=== PATIENT | female | born 1960 | race American Indian/Alaskan Native ===

== ENCOUNTER 2016-10-21 09:10 | Day surgery (SDC) | payer OTHER ==
[2016-10-19 09:29] VITALS: BMI 34.1
[~2016-10-21 09:10] MED LIST: LACTATED RINGERS 1,000 ML IV SCH
[2016-10-21 10:57] VITALS: TEMP 98.1
[2016-10-21] MEDS ORDERED: LIDOCAINE 1% 20 ML VIAL (10MG/ML) FOR IV START INTRADERMA ONE (11:04)
[2016-10-21 11:05] LABS: Glucose,Whole Blood 94 mg/dL (75-99)
[2016-10-21] MEDS ORDERED: PROPOFOL 10 MG/ML 20 ML VIAL IV ONE (11:06)
--- NOTE | 2016-10-21 11:21 | P.PCN ---
Date of Procedure: 10/21/16 Procedure(s) Performed: BRIEF HISTORY: Patient is a 56-year-old pleasant white female scheduled for an elective colonoscopy as a part of evaluation of chronic diarrhea for the last several years duration. She usually has myeloma centimeters from 5-6 a day, loose to watery in consistency but no blood or mucus in the stool. She also has prior history of colon polyps and last colonoscopy was 3 years ago. PROCEDURE PERFORMED: Colonoscopy with biopsy. PREOPERATIVE DIAGNOSIS: Chronic diarrhea and prior history of colon polyps. IV sedation per Anesthesia. PROCEDURE: After informed consent was obtained, the patient, was brought into the endoscopy unit. IV conscious sedation was administered by Anesthesia under continuous monitoring. Digital rectal examination was normal. Initially the Olympus CF-160 flexible video colonoscope was then inserted in the rectum, gradually advanced into the cecum without any difficulty. Careful examination was performed as the scope was gradually being withdrawn. Ileocecal valve and the appendiceal orifice were visualized and appeared normal. Prep was excellent. Mucosa of the cecum, ascending colon, transverse colon, descending colon, sigmoid colon, and rectum appeared normal. Random biopsies were done from the ascending and descending colon to rule out microscopic/collagenous colitis Retroflexion was performed in the rectum and no lesions were seen. The patient tolerated the procedure well. IMPRESSION: Normal-appearing colon from rectum to cecum with no evidence of colitis or colorectal neoplasia. RECOMMENDATIONS: Findings of this examination were discussed with the patient as well as a family. She was advised to follow with the biopsy results. She will continue with her current medications and she'll be seen in the office in 3 -4 weeks.
[2016-10-21 11:59] VITALS: BP 106/68; PULSE 78; RESP 16
== END 2016-10-21 12:19 | disposition home or self-care (01) ==
LOC: ORWHC2ENDO 09:10
PROVIDERS: ATTEND Internal Medicine Gastroenterology
DX: K52.9 Noninfective gastroenteritis and colitis, unspecified (principal); Z86.010 Personal history of colon polyps; K21.9 Gastro-esophageal reflux disease without esophagitis; J45.909 Unspecified asthma, uncomplicated; J44.9 Chronic obstructive pulmonary disease, unspecified; F17.200 Nicotine dependence, unspecified, uncomplicated; Z79.891 Long term (current) use of opiate analgesic; Z79.899 Other long term (current) drug therapy
CPT/HCPCS: 88305; 45380; J2704

== ENCOUNTER → 2017-09-08 | Outpatient (CLI) | payer OTHER ==
--- NOTE | 2017-09-08 16:10 | MR ---
EXAMINATION TYPE: MR lumbar spine wo con DATE OF EXAM: 09/08/2017 COMPARISON: Prior MRI lumbar spine March 26, 2014 HISTORY: Low Back pain x8 years. TECHNIQUE: Multiplanar, multisequence imaging of the lumbar spine is performed without IV contrast. FINDINGS: Sagittal images of the lumbar spine show vertebral body heights and alignment to appear sat isfactory. There is redemonstration of multilevel disc desiccation. There is redemonstration of mild to moderate disc space narrowing L1-L2 and L4-L5 levels with small posterior disc herniations on sagi ttal images felt stable. Increased signal posteriorly consistent with annular tear L4-L5 level is red emonstrated. The conus medullaris is stable and satisfactory in position and signal ending at T12-L1 disc space level. The bone marrow signal intensity is within normal limits. Minimal multilevel ante rior spurring is redemonstrated. Axial images show the T12-L1 level to remain within normal limits. Axial images at L1-L2 level show mild broad disc bulge mildly effacing anterior thecal sac, bilateral neural foramina are patent. No significant change from prior study is seen. Axial images at L2-L3 level show mild broad disc bulge with slightly more prominent left foraminal di sc protrusion component on axial image 20. There is effacement of anterior thecal sac. There is new m ild to moderate left-sided anterior inferior neural foraminal narrowing at this level. Right-sided ne ural foramen is patent. Axial images at L3-L4 level show mild facet degenerative changes and ligamentum flavum hypertrophy. T here is persistent broad-based posterior disc protrusion. There is stable mild to moderate bilateral anterior inferior neural foraminal narrowing at this level seen best on sagittal images. Axial images at L4-L5 levels redemonstrated mild to moderate facet degenerative changes bilaterally. There is small central disc protrusion mildly effacing anterior thecal sac. Bilateral neural foramina remain patent. No significant change from prior. Axial images at L5-S1 level show mild to moderate facet degenerative changes bilaterally but the spin al canal is preserved. Bilateral neural foramina are patent. No significant change from prior. No suspicious retroperitoneal findings are seen. 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
--- NOTE | 2017-09-08 21:12 | MR ---
EXAMINATION TYPE: MR angio head wo/neck wo/w con DATE OF EXAM: 09/08/2017 3:19 PM COMPARISON: NONE HISTORY: Headaches, dizzy, Three-dimensional [id number] intracranial MRA was performed with multiple intensity projection im ages submitted and source data reviewed at the workstation. The vertebrobasilar system as well as intracranial portions of the internal carotid arteries and thei r major tributaries are patent. I do not see evidence for sizable aneurysm or vascular malformation. IMPRESSION: Normal study. EXAMINATION TYPE: MR angio head wo/neck wo/w con DATE OF EXAM: 09/08/2017 3:19 PM COMPARISON: NONE HISTORY: Headaches, dizzy, Contrast: 10 cc Gadavist Multiplanar MultiSpin echo imaging of the cervical carotids was performed without and with contrast. Three-dimensional [id number] cervical carotid MRA was performed with multiple intensity projectio n images submitted and source data reviewed at the workstation. Right carotid system: There is mild plaque seen about the common carotid artery. Mild plaque is also seen at the origin and proximal aspect of the right internal carotid artery. No hemodynamically s ignificant stenosis is appreciated. Right external carotid artery right vertebral artery are patent. Left carotid system: Mild plaque involving the left common carotid artery. Minimal to mild plaque or igin left ICA. No hemodynamically significant stenosis is appreciated. External carotid artery and the left vertebral artery are patent. IMPRESSION: 1. No hemodynamically significant stenosis is appreciated at this time.
== END | disposition home or self-care (01) ==
LOC: RADMRIMAIN 14:03
PROVIDERS: ATTEND Psychiatry & Neurology Neurology
DX: I63.9 Cerebral infarction, unspecified (principal); M47.816 Spondylosis without myelopathy or radiculopathy, lumbar region
CPT/HCPCS: 70544; 70549; 72148; A9581